=== PATIENT | male | born 1960 | race Hispanic/Latino ===

== ENCOUNTER 2018-09-13 11:18 | Outpatient (CLI) | payer MEDICARE | END 2018-09-13 11:19 | disposition home or self-care (01) | LOC: DTY/OP 11:18 | PROVIDERS: ATTEND Family Medicine | DX: E11.9 Type 2 diabetes mellitus without complications (principal) | CPT/HCPCS: 97802 ==

== ENCOUNTER 2019-03-01 07:42 | Day surgery (SDC) | payer MEDICARE | END 2019-03-01 12:10 | disposition home or self-care (01) | LOC: SDC 07:42 | PROVIDERS: ATTEND Internal Medicine Gastroenterology | DX: R19.5 Other fecal abnormalities (principal); K21.9 Gastro-esophageal reflux disease without esophagitis; I48.91 Unspecified atrial fibrillation; I50.9 Heart failure, unspecified; I25.10 Atherosclerotic heart disease of native coronary artery without angina pectoris; I25.2 Old myocardial infarction; E78.5 Hyperlipidemia, unspecified; E11.9 Type 2 diabetes mellitus without complications; Z53.09 Procedure and treatment not carried out because of other contraindication | CPT/HCPCS: 36416; 93005; 93010 ==

== ENCOUNTER 2020-02-15 09:36 | Outpatient (CLI) | payer MEDICARE, BC ==
--- NOTE | 2020-02-15 13:08 | ULT ---
BILATERAL RENAL ULTRASOUND COMPLETE INCLUDING COLOR AND SPECTRAL DOPPLER IMAGING: Date: 02/15/2020 HISTORY: Hypertension, chronic kidney disease. FINDINGS: Right kidney measures 13.1 x 5.7 x 6.9 cm. Left kidney measures 13.1 x 5.5 x 9.0 cm. No hydronephrosis. Urinary bladder is unremarkable as visualized. No solid or cystic renal mass. VASCULAR DUPLEX WITH COLOR AND SPECTRAL DOPPLER IMAGING: Minimal increased velocity in the left renal artery up to 142 cm/second. Abnormally increased renal artery/aortic ratios measuring 5.0 cm on the right side and 7.0 cm on the left side. Right resistive index is 0.75. Left resistive index is 0.69. IMPRESSION: Abnormally increased renal artery/aortic ratios bilaterally, raising concern for bilateral renal sea ry stenosis. Follow-up CT angiogram of the abdomen and bilateral renal arteries might give additional information in this regard.
== END 2020-02-15 09:37 | disposition home or self-care (01) ==
LOC: SCSULT 09:36
PROVIDERS: ATTEND Internal Medicine Nephrology
DX: I12.9 Hypertensive chronic kidney disease with stage 1 through stage 4 chronic kidney disease, or unspecified chronic kidney disease (principal); N18.3 Chronic kidney disease, stage 3 (moderate); I70.1 Atherosclerosis of renal artery
CPT/HCPCS: 36415; 76770; 80053; 80061; 82043; 83036; 84443; 85025; 93975

== ENCOUNTER 2020-07-12 09:23 | Outpatient (CLI) | payer MEDICARE, BC ==
--- NOTE | 2020-07-12 11:10 | CT ---
CTA Angio Abd W WO Con History: Renal artery stenosis Comparison: Renal ultrasound February 15, 2020 Findings: CT angiogram of the abdomen was performed after the intravenous ministration of contrast. 3 -D rendering provided. Lung bases are clear. No pericardial effusion. Aneurysmal dilatation of the infrarenal abdominal aort a which measures up to 3.7 cm with a craniocaudal length of 8.6 cm. The origin of the right internal iliac artery is occluded. High-grade narrowing and near occlusion of the left internal iliac artery. Stent graft to the right external iliac artery origin which is patent. Celiac trunk and superior mesenteric arteries are patent without high-grade stenosis. The proximal 2 cm inferior mesenteric artery is occluded. No hydronephrosis. No abnormal renal enhancing mass. There are 2 separate right renal arteries from t he aorta with a single left renal artery. Renal arteries are widely patent without stenosis. Early branching of the left renal artery just distal to the ostia. No dilated loops of large or small bowel. The appendix is visualized and is normal. No retroperitonea l periaortic adenopathy. Liver is unremarkable. Adrenal glands are normal. Impression: 1. Mild atherosclerotic plaque of the renal arteries without high-grade narrowing. 2. Infrarenal abdominal aortic aneurysm measuring up to 3.7 cm with a craniocaudal length of 8.6 cm. 3. Patent right external iliac artery stent graft. 4. 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
== END 2020-07-12 09:24 | disposition home or self-care (01) ==
LOC: BICCT 09:23
PROVIDERS: ATTEND Internal Medicine Cardiovascular Disease
DX: I70.1 Atherosclerosis of renal artery (principal); I71.4 Abdominal aortic aneurysm, without rupture; I74.5 Embolism and thrombosis of iliac artery
CPT/HCPCS: 74175

== ENCOUNTER 2022-04-18 06:54 | Outpatient (CLI) | payer MEDICARE, BC | END 2022-04-18 06:55 | disposition home or self-care (01) | LOC: BICULT 06:54 | PROVIDERS: ATTEND Family Medicine | DX: E21.3 Hyperparathyroidism, unspecified (principal) | CPT/HCPCS: 76536 ==

== ENCOUNTER 2022-05-29 08:19 | Outpatient (CLI) | payer MEDICARE, BC ==
[2022-05-29 09:29] LABS: #Basophils 0.1 10x3/uL (0.0-0.2); #Eosinphils 0.2 10x3/uL (0.0-0.5); #Monocytes 0.8 10x3/uL (0.0-1.1); #Neutrophils 5.9 10x3/uL (1.5-8.4); %Basophils 0.8 % (0.0-2.0); %Eosinophils 1.8 % (0.0-6.0); %Lymphocytes 26.4 % (18.0-47.0); %Monocytes 8.8 % (0.0-10.0); %Neutrophils 61.7 % (40.0-75.0); Hemoglobin 18.6 g/dL (13.5-17.5); Mean Corpuscular Hemoglobin 30.4 pg (27.0-33.0); Mean Corpuscular Volume 89.5 fl (81.2-95.1); Mean Platelet Volume 11.5 fl (7.4-10.4); Platelet Count 224 10x3/uL (150-450); RBC Distribution Width 14.2 % (11.5-14.5); Red Blood Cell (RBC) Count 6.11 10x6/uL (4.32-5.72); White Blood Cell (WBC) Count 9.6 10x3/uL (3.5-10.5)
[2022-05-29 09:43] LABS: Prothrombin Time 10.4 sec (9.5-12.1)
[2022-05-29 09:51] LABS: Anion Gap 17 mmol/L (10-20); BUN (Urea Nitrogen) 22 mg/dL (8.4-25.7); Calc. Creatinine Clearance 0 mL/min (70-130); Calcium 9.9 mg/dL (7.8-10.44); Carbon Dioxide 21 mmol/L (23-31); Chloride 98 mmol/L (98-107); Estimated GFR 54; Glucose 300 mg/dL (80-115); Potassium 4.4 mmol/L (3.5-5.1); Sodium 132 mmol/L (136-145)
== END 2022-05-29 08:20 | disposition home or self-care (01) ==
LOC: LABBT 08:19
PROVIDERS: ATTEND Internal Medicine Cardiovascular Disease
DX: Z01.812 Encounter for preprocedural laboratory examination (principal); I25.10 Atherosclerotic heart disease of native coronary artery without angina pectoris; R94.39 Abnormal result of other cardiovascular function study; Z20.822 Contact with and (suspected) exposure to COVID-19
CPT/HCPCS: 80048; 85025; 85610; 87811

== ENCOUNTER 2022-06-02 06:12 | Day surgery (SDC) | payer MEDICARE, BC ==
[2022-05-29 10:19] VITALS: BMI 37.3
[2022-06-02] MEDS ORDERED: Fentanyl 100 MCG/2 ML VIAL ONE (06:37)
[2022-06-02] MEDS ORDERED: Heparin 10,000 UNITS/ 10 ML VIAL ONE (06:38)
[2022-06-02] MEDS ORDERED: Lidocaine 1% (PF) 30 ML VIAL ONE (06:38)
[2022-06-02] MEDS ORDERED: Midazolam HCl 2 mg/2 ml Vial ONE (06:38)
[2022-06-02] MEDS ORDERED: Iopamidol 370 76% 100 ML VIAL ONE (13:24)
== END 2022-06-02 12:58 | disposition home or self-care (01) ==
LOC: SDC 06:12
PROVIDERS: ATTEND Internal Medicine Cardiovascular Disease
PROC: 4A023N8 Measurement of Cardiac Sampling and Pressure, Bilateral, Percutaneous Approach (ICD-10-PCS; principal; 2022-06-02)
PROC: B2111ZZ Fluoroscopy of Multiple Coronary Arteries using Low Osmolar Contrast (ICD-10-PCS; 2022-06-02)
PROC: B2181ZZ Fluoroscopy of Left Internal Mammary Bypass Graft using Low Osmolar Contrast (ICD-10-PCS; 2022-06-02)
PROC: B2131ZZ Fluoroscopy of Multiple Coronary Artery Bypass Grafts using Low Osmolar Contrast (ICD-10-PCS; 2022-06-02)
DX: R94.39 Abnormal result of other cardiovascular function study (principal); I25.10 Atherosclerotic heart disease of native coronary artery without angina pectoris; I25.82 Chronic total occlusion of coronary artery; T82.855A Stenosis of coronary artery stent, initial encounter; T82.857A Stenosis of other cardiac prosthetic devices, implants and grafts, initial encounter; I11.0 Hypertensive heart disease with heart failure; I50.22 Chronic systolic (congestive) heart failure; I25.2 Old myocardial infarction; E78.00 Pure hypercholesterolemia, unspecified; F17.210 Nicotine dependence, cigarettes, uncomplicated; Z79.02 Long term (current) use of antithrombotics/antiplatelets; Z79.82 Long term (current) use of aspirin; Z79.84 Long term (current) use of oral hypoglycemic drugs; Z79.899 Other long term (current) drug therapy; Z95.1 Presence of aortocoronary bypass graft; Z95.810 Presence of automatic (implantable) cardiac defibrillator
CPT/HCPCS: 93459; C1769 ×2; C1894; 99152; 99153; J1644; J2001; J2250; J3010; Q9967